=== PATIENT | male | born 2000 | race African-American/Black ===

== ENCOUNTER 2023-10-09 02:09 | Emergency (ER) | payer SELFPAY ==
[2023-10-09 02:16] VITALS: BP 164/77; PULSE 120; RESP 16; TEMP 36.7; O2SAT 100
--- NOTE | 2023-10-09 03:22 | PC.NURSE ---
PD states they no longer need a FFC and they had him call his brother to pick him up. Pt denies medical eval at this time. Pt is axox4. Brother here as sober ride.
--- NOTE | 2023-10-09 03:33 | PC.NURSE ---
Pt with brother ambulatory to waiting room with steady gait. Paper scrubs given to pt d/t pt being wet upon arrival.
[2023-10-09 03:34] VITALS: BP 132/60; PULSE 103; RESP 14; O2SAT 18
== END 2023-10-09 03:46 | disposition left against medical advice (07) ==
PROVIDERS: Emergency Provider Emergency Medicine
DX: Z02.89 Encounter for other administrative examinations (principal)
CPT/HCPCS: 99199